=== PATIENT | male | born 1985 | race Caucasian/White ===

== ENCOUNTER 2018-07-28 21:42 | Emergency (ER) | payer OTHER, SELFPAY ==
[2018-07-28 21:53] VITALS: BP 140/93; PULSE 68; RESP 18; TEMP 37.2; O2SAT 98; BMI 28.5
--- NOTE | 2018-07-28 21:56 | DI.RAD.S_ITS ---
PROCEDURE: XR FOREARM RT 2V INDICATIONS: c/o R forearm and wrist pain TECHNIQUE: 2 views of the forearm were acquired. COMPARISON: None. FINDINGS: Bones: Nondisplaced distal radial fracture involving the radial styloid with intra-articular extension. No suspicious intraosseous lesions. Soft tissues: No suspicious soft tissue calcifications or masses. IMPRESSION: Nondisplaced distal radial fracture with mild intra-articular extension. Dictated by: Camden Schrader M.D. on 07/29/2018 at 8:09 Approved by: Camden Schrader M.D. on 07/29/2018 at 8:12
--- NOTE | 2018-07-28 22:20 | ED.UPPEXIN ---
HPI - Extremity Injury (Upper) General Chief Complaint: Extremity Injury, Upper Stated Complaint: Fell out of a garbage can, right wrist pain Time Seen by Provider: 07/28/18 21:59 Source: patient Mode of arrival: ambulatory Limitations: no limitations History of Present Illness HPI narrative: Patient is a 32-year-old male presents with right arm and wrist pain. He was standing in the trash can stopping the trash down when he fell out of the trash can and landing palm 1st onto the cement. No head injury no loss of consciousness no neck pain no numbness or tingling no gross bony deformity no shoulder pain Related Data Allergies Allergy/AdvReac Type Severity Reaction Status Date / Time No Known Drug Allergies Allergy Verified 07/28/18 21:53 Review of Systems Review of Systems GENERAL: Denies chills,fever HEENT: Denies throat pain RESPIRATORY: Denies dyspnea, cough, wheezing CARDIOVASCULAR: Denies chest pain, palpitations GASTROINTESTINAL: Denies nausea, vomiting MUSCULOSKELETAL: See HPI SKIN: No rash, no laceration, no pruritus NEUROLOGIC: Denies weakness, dizziness, headache, numbness 8 point review of systems is negative except for those stated above and HPI [facility] Medical History Patient denies significant medical history (Acute) Social History Smoking Status: Current some day smoker Social History Smoking Status: Current some day smoker Exam Initial Vital Signs Initial Vital Signs: Vital Signs Temperature 98.9 F 07/28/18 21:53 Pulse Rate 68 07/28/18 21:53 Respiratory Rate 18 07/28/18 21:53 Blood Pressure 140/93 H 07/28/18 21:53 Pulse Oximetry 98 07/28/18 21:53 GENERAL: Well-appearing, well-nourished and in no acute distress. HEAD: No sign of trauma CARDIOVASCULAR: peripheral pulses in tact, cap refill <2 sec RESPIRATORY: No respiratory distress, speaks in full sentences without difficulty EXTREMITIES: no gross syeda deformity. peripheral pulses intact. pain distally, no elbow pain. clavicle intact NEUROLOGICAL: Cranial nerves II through XII grossly intact. Normal gait and speech. SKIN: Warm, dry, no petechiae, no rashes or lesions. Procedures Orthopedic Splinting/Casting Injury #1: Side: right Upper Extremity Injury Location: wrist Upper Extremity Immobilizer: sugar tong splint Post splinting neuro exam: intact Post splinting vascular exam: intact Placed by: Nursing Course Orders Ordered: Discontinued Medications Diphtheria/Tetanus/Acell Pertussis (Adacel) 0.5 ml IM .ONCE ONE Stop: 07/28/18 22:45 Last Admin: 07/28/18 23:02 Dose: 0.5 ml Vital Signs - 8 hr 07/28/18 21:53 Temperature 98.9 F Pulse Rate 68 Respiratory Rate 18 Blood Pressure 140/93 H Pulse Oximetry 98 Discharge Plan Departure Patient Disposition: Home Clinical Impression: Fracture of wrist Qualifiers: Encounter type: initial encounter Fracture type: closed Laterality: right Qualified Code(s): S62.101A - Fracture of unspecified carpal bone, right wrist, initial encounter for closed fracture Discharge Date/Time: 07/28/18 23:30 Interventions: ED Discharge Assessment Last Done: 07/28/18 23:26 Instructions: DI for Distal Radius Fracture Activity Restrictions/Additional Instructions: *You have been diagnosed with right distal radius fractuer *What to do: Keep wrist in splint at all times do not get wet. *Continue to take medications as directed Tylenol 650 mg every 4-6 hours if needed for pain *Follow up with your primary care provider in 2-3 days, call Orthopedics tomorrow to schedule follow-up appointment in 1-2 weeks *Return to ER if you should have numbness tingling, increasing pain or any new, worsening or concerning symptoms Referrals: [facility] [Provider Group] Miscellaneous,[facility] [Non-Staff] - Stand Alone Forms: Work Release Note
[2018-07-28] MEDS: TET,DIPH,PERTUSS(ACELL),VAC/PF 0.5 ML SYRINGE IM (23:02)
[2018-07-28 23:26] VITALS: BP 136/89; PULSE 95; RESP 18; O2SAT 97
== END 2018-07-28 23:30 | disposition home or self-care (01) ==
PROVIDERS: Emergency Provider Emergency Medicine; Family Provider Family Medicine
DX: S62.101A Fracture of unspecified carpal bone, right wrist, initial encounter for closed fracture (principal); W19.XXXA Unspecified fall, initial encounter; Z23 Encounter for immunization
CPT/HCPCS: 29125; 29240; 73090; 90471; 99283; 90715

== ENCOUNTER → 2018-08-01 11:14 | Outpatient (CLI) | payer OTHER, SELFPAY ==
[2018-08-01 11:44] LABS: Add Manual Diff / Slide Review NO; Basophils Absolute Auto 0 /uL (0-100); Basophils Percent Auto 0.7 % (0-2); Eosinophils Absolute Auto 500 /uL (0-450); Eosinophils Percent Auto 6.5 % (2-4); Hematocrit 44.2 % (41-53); Hemoglobin 15.1 g/dL (13.5-17.5); Lymphocytes Absolute Auto 2100 /uL (1100-4500); Lymphocytes Percent Auto 30.7 % (25-40); Mean Corpuscular HGB Conc 34.2 % (30-36); Mean Corpuscular Hemoglobin 30.7 PG (26-34); Mean Corpuscular Volume 89.7 fL (80-100); Monocytes Absolute Auto 600 /uL (0-900); Monocytes Percent Auto 9.2 % (3-14); Neutrophils Absolute Auto 3700 /uL (1500-7000); Neutrophils Percent Auto 52.9 % (50-75); Platelet Count 271 X10^3/uL (150-400); Red Blood Cell Count 4.93 X10^6/uL (4.5-5.9); Red Cell Distribution Width 13.5 % (11.6-14.8); White Blood Cell Count 6.9 X10^3/uL (4.5-11.0)
[2018-08-01 12:07] LABS: Alanine Aminotransferase 21 IU/L (21-72); Albumin 4.4 g/dL (3.5-5.0); Albumin Globulin Ratio 1.4 (1.0-2.8); Alkaline Phosphatase 83 U/L (38-126); Aspartate Aminotransferase 39 IU/L (17-59); BUN Creatinine Ratio 21.7 (6-22); Bilirubin Total 0.9 mg/dL (0.2-1.3); Blood Urea Nitrogen 13 mg/dL (9-20); Calcium 9.7 mg/dL (8.4-10.2); Carbon Dioxide 25 mmol/L (22-32); Chloride 105 mmol/L (98-107); Cholesterol 189 mg/dL (140-199); Estimated Glomerular Filt Rate > 60.0 mL/min (>60); Globulin 3.1 g/dL (1.7-4.1); Glucose 90 mg/dL (70-100); HDL Cholesterol 39 mg/dL (40-60); HEMOLYSIS 17 (0-50); LDL Cholesterol Calculated 121 mg/dL (<100); Potassium 4.7 mmol/L (3.4-5.1); Sodium 141 mmol/L (137-145); Total Protein 7.5 g/dL (6.3-8.2); Triglycerides 143 mg/dL (35-150)
[2018-08-01 12:34] LABS: TSH w/ Reflex to FT4 2.23 uIU/mL (0.47-4.68)
== END ==
PROVIDERS: PCP Nurse Practitioner; Visit Provider Nurse Practitioner
DX: Z00.00 Encounter for general adult medical examination without abnormal findings (principal)
CPT/HCPCS: 36415; 80053; 80061; 84443; 85025

== ENCOUNTER 2022-10-15 01:17 | Emergency (ER) | payer OTHER, SELFPAY ==
[2022-10-15 01:26] VITALS: BP 147/99; PULSE 87; RESP 16; TEMP 36.6; O2SAT 96; BMI 32.1
--- NOTE | 2022-10-15 01:33 | DI.RAD.S_ITS ---
PROCEDURE: XR KNEE LT 3V INDICATIONS: knee pain TECHNIQUE: 3 views of the knee were acquired. COMPARISON: None. FINDINGS: Bones: There is slight irregularity along the lateral most aspect of the lateral tibial plateau. No distinct depression.. No suspicious bony lesions. Soft tissues: Mild joint effusion. No suspicious soft tissue calcifications. IMPRESSION: Mild effusion with slight irregularity along the surface of the lateral tibial plateau. Nondepressed fracture cannot be excluded. Recommend correlation point tenderness and recent history of trauma. If concern persists, CT is recommended. Dictated by: Unique Winn M.D. on 10/15/2022 at 1:59 Approved by: Unique Winn M.D. on 10/15/2022 at 2:00
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
[2022-10-15 02:36] VITALS: BP 131/81; PULSE 81; RESP 16; O2SAT 98
== END 2022-10-15 02:36 | disposition home or self-care (01) ==
PROVIDERS: Emergency Provider Emergency Medicine; PCP Nurse Practitioner
DX: S83.92XA Sprain of unspecified site of left knee, initial encounter (principal); W51.XXXA Accidental striking against or bumped into by another person, initial encounter
CPT/HCPCS: 73562; 99282; 99283

== ENCOUNTER 2022-10-31 09:40 | Emergency (ER) | payer BC, SELFPAY ==
[2022-10-31 09:43] VITALS: BP 133/82; PULSE 64; RESP 15; TEMP 36.2; O2SAT 99; BMI 28.5
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
--- NOTE | 2022-10-31 11:10 | ED.LOWEXIN ---
HPI - Extremity Injury (Lower) <William Christina PA-C - Last Filed: 10/31/22 13:50> General Chief Complaint: Extremity Injury, Lower Stated Complaint: DR trudi north an US Time Seen by Provider: 10/31/22 11:09 Source: patient Mode of arrival: Ambulatory History of Present Illness HPI Narrative: 36-year-old male with no reported past medical history presents to the ED for left calf pain. Patient had a left knee injury on 10/14/2022, had a negative knee x-ray. The x-ray read did suggest a follow-up CT if symptoms persisted in order to rule out a nondepressed fracture of the tibial plateau. Patient states that since the injury, his knee pain has resolved, he followed up with his PCP Dr. Hale. His PCP discussed the option of doing a CT or MRI of the knee, however patient states that he declined since his knee was starting to feel better. Since then, patient states that he has experienced left-sided calf pain. He called his PCP's office this morning, they advised him to go to the ED to rule out a DVT. Patient denies numbness, tingling, weakness. Patient denies any new trauma. Patient is able to bear weight and walk. Related Data Home Medications Medication Instructions Recorded Confirmed No Known Home Medications 10/20/22 10/20/22 Allergies Allergy/AdvReac Type Severity Reaction Status Date / Time No Known Drug Allergies Allergy Verified 10/31/22 09:43 Review of Systems <William Christina PA-C - Last Filed: 10/31/22 13:50> Review of Systems ROS Unobtainable: All systems reviewed & are unremarkable except as noted in HPI and below Constitutional Constitutional: Denies chills, Denies fatigue, Denies fever(s), Denies frequent falls, Denies lethargy and Denies weakness Eyes Eyes: Denies change in vision, Denies eye discharge, Denies irritation and Denies loss of vision ENT Ears, Nose, Mouth, and Throat: Denies change in voice, Denies dizziness, Denies neck pain, Denies sore throat and Denies throat swelling Cardiovascular Cardiovascular: Denies chest pain, Denies irregular heart rhythm, Denies lightheadedness, Denies palpitations, Denies dyspnea, Denies dyspnea on exertion and Denies orthopnea Respiratory Respiratory: Denies cough, Denies dyspnea, Denies dyspnea on exertion and Denies wheezing Gastrointestinal Gastrointestinal: Denies abdominal pain, Denies change in bowel habits, Denies diarrhea, Denies nausea and Denies vomiting Genitourinary Genitourinary: Denies hematuria, Denies flank pain, Denies urinary incontinence and Denies urinary urgency Musculoskeletal Musculoskeletal: Denies back pain, Denies muscle weakness, Denies neck pain, Denies numbness and Denies tingling Comments: Left calf pain Integumentary/Breasts Skin/Breast: Denies pruritus, Denies erythema, Denies rash and Denies wounds Neurologic Neurologic: Denies behavioral changes, Denies confusion, Denies dizziness, Denies frequent falls, Denies loss of vision, Denies numbness, Denies tingling and Denies weakness Psychiatric Psychiatric: Denies anxiety, Denies behavioral changes, Denies confusion, Denies depression, Denies homicidal ideation and Denies suicidal ideation Endocrine Endocrine: Denies fatigue, Denies flushing and Denies palpitations Hematologic/Lymphatic Hematologic/Lymphatic: Denies easy bruising Allergic/Immunologic Allergic/Immunologic: Denies urticaria, Denies throat swelling and Denies wheezing Patient History <William Christina PA-C - Last Filed: 10/31/22 13:50> Medical History Acne (~2014) Fractures (~2018) Patient denies significant medical history Seasonal allergies (~1999) Surgical History Anesthesia History of removal of skin mole (~2004) Family History Father ALS (amyotrophic lateral sclerosis) Grandfather Diabetes mellitus Grandmother Cancer Diabetes mellitus Social History Smoking Status: Current some day smoker Smoking Status: Current some day smoker tobacco type: vaping alcohol intake frequency: other Substance Use Type: does not use Exam <William Christina PA-C - Last Filed: 10/31/22 13:50> Narrative Exam Narrative: Const General:?cooperative, healthy appearing and comfortable HENDC Head:?normal to inspection Ears:?hearing grossly normal bilaterally Nose:?external nose normal Face and sinus:?normal facial exam and sinuses nontender Mouth:?oral mucosae normal Throat:?posterior oropharynx normal Eyes General:?appearance normal, both eyes and all related structures Neck Neck:?normal visual inspection and no lymphadenopathy noted Resp Effort & Inspection:?normal respiratory effort Auscultation:?clear to auscultation bilaterally Cardio Rate:?regular rate Rhythm:?regular rhythm Musculoskeletal There is some tenderness to palpation of the left calf muscle. No tenderness to palpation of the left knee. There is full range of motion. Strength and sensation is intact. Patient is neurovascularly intact. Neuro General:?patient alert, patient awake and patient oriented x3 Initial Vital Signs Initial Vital Signs: Vital Signs Temperature 97.1 F L 10/31/22 09:43 Pulse Rate 64 10/31/22 09:43 Respiratory Rate 15 10/31/22 09:43 Blood Pressure 133/82 10/31/22 09:43 Pulse Oximetry 99 10/31/22 09:43 Oxygen Delivery Method Room Air 10/31/22 09:43 Const General: cooperative HENMT Head: normocephalic and atraumatic Ears: external ears normal and TM's normal bilaterally Nose: external nose normal and No nasal discharge Face and sinus: sinuses nontender, face symmetric, no sinus tenderness and No dry mucous membranes Mouth: oral mucosae normal and moist mucous membranes Teeth and gingiva: dentition normal Throat: tonsils normal and uvula midline Eyes General: Yes appearance normal, both eyes and all related structures Eyelids: eyelids normal Conjunctivae: conjunctivae normal Sclera: sclerae normal Pupils: PERRL EOM: EOM intact bilaterally Neck Neck: normal visual inspection, trachea midline, No lymphadenopathy, No midline deformity and No JVD Lymphatic: No lymphedema Chest Chest: normal inspection of the chest Resp Effort & Inspection: normal respiratory effort, able to speak in complete sentences, no respiratory distress and no use of accessory muscles Auscultation: clear to auscultation bilaterally, no rales, no rhonchi and no wheezes Cardio Rate: regular rate Rhythm: regular rhythm Heart Sounds: no click, no gallops, no murmurs and no rubs Pulses: normal peripheral pulses GI Inspection: non-distended Palpation: soft, no hepatosplenomegaly, No guarding, No pulsatile mass and No tender Auscultation: normal bowel sounds Back/Spine/Pelvis Back: No CVA tenderness Cervical Spine: cervical ROM normal and No pain with cervical ROM Thoracic/Lumbar Spine: thoracic and lumbar spine normal to inspection Skin General: no rashes or lesions noted, No jaundice and No petechiae Neuro General: patient alert, patient oriented x3, gait normal and no focal motor deficits Speech: speech normal Extrem General: full ROM, no clubbing, cyanosis or edema, no pedal edema and no calf tenderness Psych Appearance: well kempt Mental Status: mental status grossly normal Attitude: cooperative Thought Content: normal and suicidality Judgment: judgment good <Chuy Mcqueen MD - Last Filed: 11/01/22 06:53> Initial Vital Signs Initial Vital Signs: Vital Signs Temperature 97.1 F L 10/31/22 09:43 Pulse Rate 64 10/31/22 09:43 Respiratory Rate 15 10/31/22 09:43 Blood Pressure 133/82 10/31/22 09:43 Pulse Oximetry 99 10/31/22 09:43 Oxygen Delivery Method Room Air 10/31/22 09:43 Course <William Christina PA-C - Last Filed: 10/31/22 13:50> Orders Ordered: ED Orders 10/31/22 09:53 US periph venous low extrem lt Stat Vital Signs Vital signs: Vital Signs - 8 hr 10/31/22 09:43 Temperature 97.1 F L Pulse Rate 64 Respiratory Rate 15 Blood Pressure 133/82 Pulse Oximetry 99 Oxygen Delivery Method Room Air <Chuy Mcqueen MD - Last Filed: 11/01/22 06:53> Orders Ordered: ED Orders 10/31/22 09:53 US periph venous low extrem lt Stat Vital Signs Vital signs: Vital Signs - 8 hr 10/31/22 09:43 Temperature 97.1 F L Pulse Rate 64 Respiratory Rate 15 Blood Pressure 133/82 Pulse Oximetry 99 Oxygen Delivery Method Room Air MDM - Extremity Injury (Lower) <William Christina PA-C - Last Filed: 10/31/22 13:50> MDM Narrative Medical decision making narrative: 36-year-old male with no reported past medical history presents to the ED for left calf pain. Concern for DVT versus calf muscle strain/sprain versus fracture versus other. Ultrasound negative for DVT. Discussed with patient the option of doing a CT to rule out any fractures or other acute findings. Patient again declined since his knee has not been painful. Patient agrees to follow-up again with his PCP Dr. Hale and consider further imaging if his symptoms have still not improved. ED return precautions were discussed with patient. Patient verbalized understanding. Medical record reviewed: Yes Discharge Plan Departure Patient Disposition: Home Clinical Impression: Pain of left calf Instructions: DI for Calf Muscle Strain Activity Restrictions/Additional Instructions: You were evaluated in the ED today for left calf pain. The ultrasound did not show any blood clots or DVTs. It appears that your knee pain has significantly improved, and that your discomfort is localized to the left calf muscle. It is possible that you have a calf muscle strain that is causing your symptoms, in which case it will improve over the next several weeks. Please follow-up with Dr. Hale as soon as possible. We did discuss the option to do a CT scan of the leg to rule out any other complications including fractures, which you opted out of this option since your knee was feeling much improved. Please return to the ED if you have worsening symptoms, numbness, tingling, weakness. Prescriptions: No Action No Known Home Medications Referrals: Aimee Vazquez ARNP [Primary Care Provider] - Stand Alone Forms: Patient Portal/API <Chuy Mcqueen MD - Last Filed: 11/01/22 06:53> Cosign ED Attending Fordature Attestation: I was immediately available in the department for consultation. ?This documentation has been reviewed and I agree with assessment and plan. Supervised by Chuy Mcqueen MD
== END 2022-10-31 11:39 | disposition home or self-care (01) ==
PROVIDERS: Emergency Provider Student in an Organized Health Care Education/Training Program; PCP Nurse Practitioner
DX: M79.605 Pain in left leg (principal)
CPT/HCPCS: 93971; 99281; 99283